=== PATIENT | female | born 1960 | race African-American/Black ===

== ENCOUNTER 2017-06-03 05:06 | Emergency (ER) | payer BC ==
[2017-06-03 08:06] LABS: Basophils % (Auto) 0.3 % (0.0-1.8); Eosinophils # (Auto) 0.1 K/mm3 (0.0-0.4); Eosinophils % (Auto) 1.1 % (0.0-4.3); Hematocrit 36.6 % (30.3-42.9); Hemoglobin 12.4 gm/dl (10.1-14.3); Lymphocytes # (Auto) 1.5 K/mm3 (1.2-5.4); Lymphocytes % (Auto) 23.8 % (13.4-35.0); Mean Corpuscular HGB Conc 34 % (30-34); Mean Corpuscular Hemoglobin 30 pg (28-32); Mean Corpuscular Volume 87 fl (79-97); Monocytes # (Auto) 0.3 K/mm3 (0.0-0.8); Monocytes % (Auto) 5.4 % (0.0-7.3); Platelet Count 246 K/mm3 (140-440); Red Blood Count 4.19 M/mm3 (3.65-5.03); Red Cell Distribution Width 13.8 % (13.2-15.2)
[2017-06-03 08:23] LABS: BUN/Creatinine Ratio 40; Blood Urea Nitrogen 16 mg/dL (7-17); Calcium 9.4 mg/dL (8.4-10.2); Hemolysis Index 10
[2017-06-03 08:36] LABS: Bilirubin,Urine NEG (Negative); Blood,Urine NEG (Negative); Color,Urine Amber (Yellow); Mucus,Urine FEW /HPF; Nitrite,Urine POS (Negative); Protein,Urine <15 mg/dL mg/dL (Negative)
[2017-06-03] MEDS ORDERED: AFRIN NS ONE (09:37)
[2017-06-03] MEDS ORDERED: MACROBID PO ONE (09:37)
[2017-06-03] MEDS ORDERED: TYLENOL PO ONE (09:41)
--- NOTE | 2017-06-03 09:41 | Emergency Department Report ---
ED ENT HPI - General Chief complaint: Nosebleed Stated complaint: NOSE BLEEEDING Time Seen by Provider: 06/03/17 09:07 Source: patient Mode of arrival: Ambulatory Limitations: No Limitations - History of Present Illness Initial comments: 57-year-old female past medical history hypertension, hypothyroid presents with complaint of episode of nosebleed today. Patient states she also had a nosebleed last week. Patient states that she bled from her nose for 1-2 hours today. Denies fevers chills headaches denies any trauma to nose. Denies inserting anything in her nose. Denies nasal pain. Patient is fully lucid awake alert and oriented 3. Patient also incidentally states that for the last few days she has had slight dysuria and increased urinary frequency. MD complaint: epistaxis -: This morning Location: nose Severity: mild Improves with: none Worsens with: none - Related Data Previous Rx's Medication Instructions Recorded Last Taken Type Nitrofurantoin Monohyd/M-Cryst 100 mg PO BID #14 capsule 06/03/17 Unknown Rx [Macrobid 100 mg Capsule] Oxymetazoline 0.05% [Afrin] 1 spray NS Q12H PRN #1 bottle 06/03/17 Unknown Rx Phenazopyridine [Pyridium] 100 mg PO TID #6 tab 06/03/17 Unknown Rx Allergies Allergy/AdvReac Type Severity Reaction Status Date / Time No Known Allergies Allergy Unverified 06/03/17 06:17 ED Dental HPI - General Chief complaint: Nosebleed Stated complaint: NOSE BLEEEDING Time Seen by Provider: 06/03/17 09:07 Source: patient Mode of arrival: Ambulatory Limitations: No Limitations - Related Data Previous Rx's Medication Instructions Recorded Last Taken Type Nitrofurantoin Monohyd/M-Cryst 100 mg PO BID #14 capsule 06/03/17 Unknown Rx [Macrobid 100 mg Capsule] Oxymetazoline 0.05% [Afrin] 1 spray NS Q12H PRN #1 bottle 06/03/17 Unknown Rx Phenazopyridine [Pyridium] 100 mg PO TID #6 tab 06/03/17 Unknown Rx Allergies Allergy/AdvReac Type Severity Reaction Status Date / Time No Known Allergies Allergy Unverified 06/03/17 06:17 ED Review of Systems ROS: Stated complaint: NOSE BLEEEDING Other details as noted in HPI Constitutional: denies: chills, fever Eyes: denies: eye pain, eye discharge, vision change ENT: epistaxis Respiratory: denies: cough, shortness of breath, wheezing Cardiovascular: denies: chest pain, palpitations Endocrine: no symptoms reported Gastrointestinal: denies: abdominal pain, nausea, diarrhea Genitourinary: dysuria. denies: urgency, discharge Musculoskeletal: denies: back pain, joint swelling, arthralgia Skin: denies: rash, lesions Neurological: denies: headache, weakness, paresthesias Psychiatric: denies: anxiety, depression Hematological/Lymphatic: denies: easy bleeding, easy bruising ED Past Medical Hx - Past Medical History Previous Medical History?: Yes Hx Hypertension: Yes Additional medical history: "thyroid problem" - Surgical History Past Surgical History?: No - Social History Smoking Status: Never Smoker Substance Use Type: None - Medications Home Medications: Home Medications Medication Instructions Recorded Confirmed Last Taken Type Nitrofurantoin Monohyd/M-Cryst 100 mg PO BID #14 capsule 06/03/17 Unknown Rx [Macrobid 100 mg Capsule] Oxymetazoline 0.05% [Afrin] 1 spray NS Q12H PRN #1 bottle 06/03/17 Unknown Rx Phenazopyridine [Pyridium] 100 mg PO TID #6 tab 06/03/17 Unknown Rx ED Physical Exam - General Limitations: No Limitations General appearance: alert, in no apparent distress - Head Head exam: Present: atraumatic, normocephalic - Eye Eye exam: Present: normal appearance, PERRL, EOMI - ENT ENT exam: Present: mucous membranes moist, other (some dry blood left nostril but no active bleeding on examination of either nasal passage) - Neck Neck exam: Present: normal inspection - Respiratory Respiratory exam: Present: normal lung sounds bilaterally. Absent: respiratory distress - Cardiovascular Cardiovascular Exam: Present: regular rate, normal rhythm. Absent: systolic murmur, diastolic murmur, rubs, gallop - GI/Abdominal GI/Abdominal exam: Present: soft, normal bowel sounds - Bi-manual exam: Present: other - Extremities Exam Extremities exam: Present: normal inspection - Back Exam Back exam: Present: normal inspection - Neurological Exam Neurological exam: Present: alert, oriented X3, CN II-XII intact, normal gait - Psychiatric Psychiatric exam: Present: normal affect, normal mood - Skin Skin exam: Present: warm, dry, intact, normal color. Absent: rash ED Course Vital Signs 06/03/17 06:08 Temperature 98.6 F Pulse Rate 116 H Respiratory 18 Rate Blood Pressure 154/100 O2 Sat by Pulse 97 Oximetry ED Medical Decision Making - Lab Data Result diagrams: 06/03/17 07:45 06/03/17 07:45 - Medical Decision Making A/P: Urinary tract infection, nosebleed 1-no active bleeding at time of examination the labs including CBC H&H unremarkable. Patient does not take any anticoagulants 2-urinalysis nitrites positive will treat empirically with Macrobid no clinical signs of pyelonephritis 3-follow up with primary care doctor 4- vital signs stable for discharge Critical care attestation.: If time is entered above; I have spent that time in minutes in the direct care of this critically ill patient, excluding procedure time. ED Disposition Clinical Impression: Nosebleed Urinary tract infection Qualifiers: Urinary tract infection type: acute cystitis Hematuria presence: without hematuria Qualified Code(s): N30.00 - Acute cystitis without hematuria Disposition: DC- TO HOME OR SELFCARE Is pt being admited?: No Does the pt Need Aspirin: No Condition: Stable Instructions: Epistaxis (ED), Urinary Tract Infection in Women (ED), Dysuria ( ED), Phenazopyridine (By mouth) Prescriptions: Nitrofurantoin Monohyd/M-Cryst [Macrobid 100 mg Capsule] 100 mg PO BID #14 capsule Oxymetazoline 0.05% [Afrin] 1 spray NS Q12H PRN #1 bottle PRN Reason: Bleeding Phenazopyridine [Pyridium] 100 mg PO TID #6 tab Referrals: [facility] [Outside] - 3-5 Days [facility] [Outside] - 3-5 Days Forms: Work/School Release Form(ED) Time of Disposition: 10:19 Print Language: PERSIAN
[2017-06-03 10:40] VITALS: BP 137/87
== END 2017-06-03 10:38 | disposition home or self-care (01) ==
LOC: ED 05:06
DX: R04.0 Epistaxis (principal); N30.00 Acute cystitis without hematuria; I10 Essential (primary) hypertension
CPT/HCPCS: 36415; 80048; 81001; 85025; 87086; 99284

== ENCOUNTER 2021-10-06 14:20 | Emergency (ER) | payer BC, OTHER ==
[2021-10-07] MEDS ORDERED: IBUPROFEN 600 MG TAB PO ONE (02:01)
[2021-10-07] MEDS ORDERED: ACETAMINOPHEN 500 MG TAB PO ONE (02:01)
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
[2021-10-07 03:31] VITALS: BP 158/77
== END 2021-10-07 03:31 | disposition home or self-care (01) ==
LOC: ED 14:20
DX: S46.912A Strain of unspecified muscle, fascia and tendon at shoulder and upper arm level, left arm, initial encounter (principal); S46.911A Strain of unspecified muscle, fascia and tendon at shoulder and upper arm level, right arm, initial encounter; M62.838 Other muscle spasm; M62.830 Muscle spasm of back; I10 Essential (primary) hypertension; E07.9 Disorder of thyroid, unspecified; E11.9 Type 2 diabetes mellitus without complications; V89.2XXA Person injured in unspecified motor-vehicle accident, traffic, initial encounter; Y93.89 Activity, other specified; Y92.89 Other specified places as the place of occurrence of the external cause; Y99.8 Other external cause status
CPT/HCPCS: 72040; 72100; 82962; 99283